=== PATIENT | female | born 1980 | race Two or more races ===

== ENCOUNTER 2023-02-05 09:51 | Inpatient (IN) | payer MEDICAID ==
[2023-02-05] VITALS (14 sets, daily range): BP systolic 102–136; BP diastolic 51–83; PULSE 63–80; RESP 12–20; TEMP 97.6–99.1; O2SAT 100
[~2023-02-05] VITALS: Ht 165.1 cm; Wt 106.2 kg
[2023-02-05 10:49] LABS: Albumin 3.5 g/dL (3.4-5.0); Calcium 8.2 mg/dL (8.5-10.1); Potassium 4.3 mmol/L (3.5-5.1)
[2023-02-05 10:52] LABS: BUN/Creatinine Ratio 9.7 (10.0-20.0); Bilirubin, Total 0.3 mg/dL (0.2-1.0); Total Protein 7.2 g/dL (6.4-8.2)
[2023-02-05 11:17] LABS: Urine Bacteria NONE SEEN /hpf (None Seen); Urine Blood 3+ /uL (Negative); Urine Mucus FEW (None Seen); Urine Specific Gravity 1.015 (1.001-1.035); Urine WBC 1 /hpf (0 - 5)
[2023-02-05 12:09] LABS: Eosinophils # (auto) 0.1 10 ^3/uL (0-0.8); Monocytes # (auto) 0.3 10 ^3/uL (0-1.3)
[2023-02-05 12:11] LABS: Basophils # (auto) 0.1 10 ^3/uL (0-0.2); Basophils % (auto) 1.9 % (0.0-2.0); Eosinophils % (auto) 1.7 % (0.0-7.0); Lymphocytes # (auto) 1.2 10 ^3/uL (0.4-5.4); Mean Corpuscular Hemoglobin 16.7 pg (28.0-32.0); Mean Corpuscular Hgb Conc. 28.5 g/dL (32.0-36.0); Mean Corpuscular Volume 58.5 fL (80.0-100.0); Monocytes % (auto) 4.8 % (0.0-12.0); Neutrophils # (auto) 4.1 10 ^3/uL (1.6-8.6); Neutrophils % (auto) 70.6 % (37.0-80.0); Nucleated Red Blood Cells % 0.2 %; Red Blood Cells 3.07 10^6/uL (4.0-5.20); White Blood Cell 5.8 10^3/uL (4.4-10.8)
[2023-02-05 12:14] LABS: Red Cell Distribution Width 21.6 % (11.8-14.3)
[2023-02-05 12:16] LABS: Hemoglobin 5.1 g/dL (12.2-16.2)
[2023-02-05 13:13] LABS: % Iron Saturation 2.7 % (15-50)
[2023-02-05] MEDS: SODIUM FERR GLUC 62.5MG/5ML 125 MG in SODIUM CHL 0.9% 100 ML IV SCH (14:15)
[2023-02-05] MEDS ORDERED: FERR1TAB36 PO (23:53)
[2023-02-06] VITALS (9 sets, daily range): BP systolic 108–148; BP diastolic 62–80; PULSE 61–106; RESP 15–70; TEMP 37.2; O2SAT 96–98
[2023-02-06 03:05] LABS: Basophils # (auto) 0 10 ^3/uL (0-0.2); Eosinophils # (auto) 0.1 10 ^3/uL (0-0.8); White Blood Cell 7.5 10^3/uL (4.4-10.8)
[2023-02-06 03:07] LABS: Basophils % (auto) 0.3 % (0.0-2.0); Eosinophils % (auto) 1.1 % (0.0-7.0); Hematocrit 23.1 % (36.0-46.0); Lymphocytes # (auto) 1.2 10 ^3/uL (0.4-5.4); Lymphocytes % (auto) 16.5 % (10.0-50.0); Mean Corpuscular Hemoglobin 19.7 pg (28.0-32.0); Mean Corpuscular Hgb Conc. 29.8 g/dL (32.0-36.0); Mean Corpuscular Volume 66.1 fL (80.0-100.0); Monocytes # (auto) 0.5 10 ^3/uL (0-1.3); Monocytes % (auto) 6.5 % (0.0-12.0); Neutrophils # (auto) 5.7 10 ^3/uL (1.6-8.6); Neutrophils % (auto) 75.6 % (37.0-80.0); Red Blood Cells 3.49 10^6/uL (4.0-5.20)
[2023-02-06 03:08] LABS: Red Cell Distribution Width 29.3 % (11.8-14.3)
[2023-02-06 03:11] LABS: Hemoglobin 6.9 g/dL (12.2-16.2)
[2023-02-06] MEDS: SODIUM FERR GLUC 62.5MG/5ML 125 MG in SODIUM CHL 0.9% 100 ML IV SCH (10:03)
[2023-02-06] MEDS ORDERED: MULT-1018 PO (10:16)
[2023-02-06 11:20] LABS: Hemoglobin 8.4 g/dL (12.2-16.2)
[2023-02-06 11:24] LABS: Hematocrit 27.2 % (36.0-46.0)
[2023-02-07 11:44] LABS: Hepatitis C Antibody Negative (Negative)
== END 2023-02-06 18:30 | disposition home or self-care (01) | DRG 663 ==
LOC: ER 09:51 → OVERFLOW 14:13 → WEST WING 23:35
PROVIDERS: ADMIT Internal Medicine; ATTEND Student in an Organized Health Care Education/Training Program
PROC: 30233N1 Transfusion of Nonautologous Red Blood Cells into Peripheral Vein, Percutaneous Approach (ICD-10-PCS; principal; 2023-02-05)
DX: D50.9 Iron deficiency anemia, unspecified (principal); D25.9 Leiomyoma of uterus, unspecified; N92.0 Excessive and frequent menstruation with regular cycle
CPT/HCPCS: 36415; 76856; 80053; 81001; 82270; 83540; 83550; 84484; 85014; 85018; 85025; 86803; 86850; 86900; 86901; 86920; 87340; 93005; 96365; G0378

== ENCOUNTER 2023-06-13 16:17 | Emergency (ER) | payer MEDICAID ==
[~2023-06-13] VITALS: Ht 170.2 cm; Wt 106.4 kg
[~2023-06-13 16:17] MED LIST: FERR1TAB36 PO; MULT-1018 PO
[2023-06-13] MEDS ORDERED: SODIUM CHLORIDE 0.9% 500 ML IV ONE (17:00)
[2023-06-13 17:49] LABS: Basophils # (auto) 0 10 ^3/uL (0-0.2); Eosinophils # (auto) 0.1 10 ^3/uL (0-0.8); Lymphocytes # (auto) 1.3 10 ^3/uL (0.4-5.4); Monocytes # (auto) 0.5 10 ^3/uL (0-1.3)
[2023-06-13 17:52] LABS: Basophils % (auto) 0.3 % (0.0-2.0); Eosinophils % (auto) 1.3 % (0.0-7.0); Hematocrit 26.5 % (36.0-46.0); Hemoglobin 8.4 g/dL (12.2-16.2); Lymphocytes % (auto) 15.1 % (10.0-50.0); Mean Corpuscular Hgb Conc. 31.5 g/dL (32.0-36.0); Mean Corpuscular Volume 76.1 fL (80.0-100.0); Monocytes % (auto) 5.3 % (0.0-12.0); Neutrophils # (auto) 6.9 10 ^3/uL (1.6-8.6); Red Blood Cells 3.49 10^6/uL (4.0-5.20); Red Cell Distribution Width 16.8 % (11.8-14.3); White Blood Cell 8.9 10^3/uL (4.4-10.8)
[2023-06-13 18:24] LABS: Alanine Aminotransferase 14 U/L (7-40); Albumin 4.3 g/dL (3.2-4.8); Alkaline Phosphatase 76 U/L (46-116); Anion Gap 6 (5-15); Aspartate Aminotransferase 12 U/L (13-40); BUN/Creatinine Ratio 18.4 (10.0-20.0); Blood Urea Nitrogen 14 mg/dL (9-23); Calcium 8.5 mg/dL (8.7-10.4); Carbon Dioxide 26 mmol/L (20-30); Chloride 108 mmol/L (98-107); Glucose 90 mg/dL (74-106); Potassium 3.4 mmol/L (3.5-5.1); Sodium 140 mmol/L (136-145)
[2023-06-13 18:25] LABS: Bilirubin, Total 0.2 mg/dL (0.2-1.0); Total Protein 6.7 g/dL (5.7-8.2)
[2023-06-13 18:28] LABS: INR 0.99 (0.9-1.15); Partial Thromboplastin Time 26.2 SEC (24.5-34.5); Prothrombin Time 10.4 sec (9.3-11.8)
[2023-06-13 20:40] VITALS: BP 135/72; PULSE 67; RESP 12; TEMP 97.9; O2SAT 99
== END 2023-06-13 20:47 | disposition left against medical advice (07) ==
LOC: ER 16:17
DX: R53.1 Weakness (principal); R10.2 Pelvic and perineal pain; R51.9 Headache, unspecified; R53.83 Other fatigue; I10 Essential (primary) hypertension; Z86.2 Personal history of diseases of the blood and blood-forming organs and certain disorders involving the immune mechanism; Z79.899 Other long term (current) drug therapy
CPT/HCPCS: 36415; 80053; 84702; 85025; 85610; 85730; 86850; 86900; 86901; 93005; 96360; 99284; J7040